=== PATIENT | female | born 1985 | race Caucasian/White ===

== ENCOUNTER 2018-11-12 13:30 | Inpatient (IN) | payer OTHER ==
[~2018-11-12] VITALS: Ht 167.6 cm; Wt 72.6 kg
[2018-11-17] MEDS ORDERED: TERCONAZOLE20 GM (08:21)
[2018-11-19] MEDS ORDERED: OXYC1TAB9 PO (07:07)
[2018-11-19] MEDS ORDERED: IBUPROFEN400 MG PO (07:07)
[2018-11-19] MEDS ORDERED: SURFAK240 M1 PO (07:07)
[2018-11-19] MEDS ORDERED: MAXFE CAPLET1 EACH PO (07:17)
== END 2018-11-19 09:46 | disposition home or self-care (01) | DRG 743 ==
LOC: ADM 13:30 → EDSTATUS 13:30 → ADM 11-14 07:30 → O/R 11-17 06:51 → OB/GYN 11-17 06:51 → SURH 11-17 13:30 → OB/GYN 11-17 14:40
PROVIDERS: ADMIT Obstetrics & Gynecology Gynecology
PROC: 0UT70ZZ Resection of Bilateral Fallopian Tubes, Open Approach (ICD-10-PCS; 2018-11-17)
PROC: 0JQC0ZZ Repair Pelvic Region Subcutaneous Tissue and Fascia, Open Approach (ICD-10-PCS; 2018-11-17)
PROC: 0UT90ZZ Resection of Uterus, Open Approach (ICD-10-PCS; principal; 2018-11-17 14:30)
DX: D25.1 Intramural leiomyoma of uterus (principal); N72 Inflammatory disease of cervix uteri; N80.0 Endometriosis of uterus; N81.6 Rectocele